=== PATIENT | male | born 1975 | race African-American/Black ===

== ENCOUNTER 2017-07-07 17:18 | Emergency (ER) | END 2017-07-07 21:05 | disposition home or self-care (01) ==

== ENCOUNTER 2018-11-20 09:20 | Emergency (ER) | payer OTHER ==
[~2018-11-20] VITALS: Ht 175.3 cm; Wt 75.0 kg
[~2018-11-20 09:20] MED LIST: ALBU18HF INHALATION; AZIT250T PO; IBUP-1542 PO; OLAN10TA7 PO; PRED20TA PO; VIVITROL IJ
[2018-11-20 09:23] VITALS: Ht 175.3 cm; Wt 75.0 kg
[2018-11-20] MEDS ORDERED: predniSONE 20 MG TAB PO STA (09:52)
[2018-11-20] MEDS ORDERED: ALBUTEROL 0.5% (NEB) 2.5 MG/0.5 ML AMP INH STA (09:52)
[2018-11-20] MEDS ORDERED: IPRATROPIUM (NEB) 0.5 MG/2.5 ML AMP INH STA (09:52)
[2018-11-20 12:19] VITALS: BP 145/88; PULSE 102; RESP 18
== END 2018-11-20 12:30 | disposition home or self-care (01) ==
LOC: E/R 09:20
DX: J40 Bronchitis, not specified as acute or chronic (principal); J45.21 Mild intermittent asthma with (acute) exacerbation; F17.210 Nicotine dependence, cigarettes, uncomplicated
CPT/HCPCS: 71045; 94644; J7512; Z7502; Z7610